=== PATIENT | female | born 1960 | race Two or more races ===

== ENCOUNTER → 2018-05-22 | Outpatient (CLI) | payer BC ==
[~2018-05-22] VITALS: Ht 170.2 cm; Wt 74.4 kg
[~2018-05-22] MED LIST: ADVAIR 250/501 DISK IH; DIOVAN160 MG PO; ECOTRIN325 MG PO; HYDROCHLOROTHIA25 MG PO; LIPITOR40 MG PO; POLY-VITAMIN1 EACH PO; PROZAC40 MG PO; SINGULAIR10 MG PO
== END | disposition home or self-care (01) ==
LOC: AMB 11:15
PROC: 0DJD8ZZ Inspection of Lower Intestinal Tract, Via Natural or Artificial Opening Endoscopic (ICD-10-PCS; principal; 2018-05-22)
DX: Z12.11 Encounter for screening for malignant neoplasm of colon (principal); K57.30 Diverticulosis of large intestine without perforation or abscess without bleeding; R10.32 Left lower quadrant pain; Z79.82 Long term (current) use of aspirin; Z80.0 Family history of malignant neoplasm of digestive organs; J45.909 Unspecified asthma, uncomplicated; F32.9 Major depressive disorder, single episode, unspecified; E78.5 Hyperlipidemia, unspecified; Z86.73 Personal history of transient ischemic attack (TIA), and cerebral infarction without residual deficits; I10 Essential (primary) hypertension; Z87.891 Personal history of nicotine dependence; Z80.3 Family history of malignant neoplasm of breast; Z83.3 Family history of diabetes mellitus; Z82.49 Family history of ischemic heart disease and other diseases of the circulatory system; Z82.3 Family history of stroke